=== PATIENT | female | born 1960 | race Hispanic/Latino ===

== ENCOUNTER 2021-05-18 21:09 | Emergency (ER) | payer OTHER ==
[~2021-05-18] VITALS: Ht 149.9 cm; Wt 59.0 kg
[2021-05-18] MEDS ORDERED: 0.9%NACL 1000ML 1,000 ML IV ONE (23:30)
[2021-05-18] MEDS ORDERED: PANTOPRAZOLE 40 MG/VIAL IVP ONE (23:30)
[2021-05-18] MEDS ORDERED: ONDANSETRON 4MG INJ IVP ONE (23:30)
[2021-05-18] MEDS ORDERED: METOCLOPRAMIDE 10 MG/2 ML VIAL IVP ONE (23:30)
[2021-05-18] MEDS ORDERED: FAMOTIDINE 20MG VIAL IV ONE (23:30)
[2021-05-18 23:33] LABS: BASOPHILS % (AUTO) 0.4 % (0.0-5.0); EOSINOPHILS % (AUTO) 0.9 % (0.0-8.0); HEMATOCRIT 38.6 % (36-48); LYMPHOCYTES % (AUTO) 35.5 % (21.0-51.0); MEAN CORPUSCULAR HEMOGLOBIN 27.6 pg (27.0-33.0); MEAN CORPUSCULAR HGB CONC 32.1 g/dL (32.0-36.0); MONOCYTES % (AUTO) 6.6 % (3.0-13.0); PLATELET COUNT (AUTO) 249 K/uL (130-400); RED BLOOD CELL COUNT(AUTO) 4.49 MIL/uL (4.00-5.50); RED CELL DISTRIBUTION WIDTH 13.6 % (11.0-15.5)
[2021-05-18 23:35] LABS: ABG BASE EXCESS 2.7 mmol/L (-2.0-3.0); ABG HCO3 26.9 mmol/L (21.0-28.0); ABG OXYGEN SATURATION 96.4 % (95.0-99.0); ABG PCO2 40 mmHg (32-45)
[2021-05-18 23:39] LABS: CREATININE 0.6 mg/dL (0.5-1.5); POTASSIUM 3.6 mmol/L (3.5-5.1)
[2021-05-18 23:44] LABS: ALBUMIN 3.2 g/dL (3.5-5.0); BILIRUBIN,TOTAL 0.2 mg/dL (0.2-1.0); TOTAL PROTEIN, SERUM 7.1 g/dL (6.0-8.3)
[2021-05-18] MEDS ORDERED: IOHEXOL 350 MG/ML 100ML INFUS..BTL IV ONE (23:57)
[2021-05-19 02:00] VITALS: BP 163/78
[2021-05-19 02:45] LABS: BILIRUBIN,URINE Negative (NEGATIVE); COLOR,URINE Yellow (YELLOW); GLUCOSE, URINE (UA) 500 mg/dL (NEGATIVE); KETONES,URINE Negative (NEGATIVE); LEUKOCYTE ESTERASE ,URINE Negative (NEGATIVE); NITRATE,URINE Negative (NEGATIVE); OCCULT BLOOD,URINE Small (NEGATIVE); PH,URINE 5.5 (5.0-8.0); PROTEIN,URINE POS 2+ mg/dL (NEGATIVE)
[2021-05-19 02:51] LABS: APPEARANCE,URINE CLOUDY (CLEAR)
[2021-05-19 03:08] LABS: BACTERIA,URINE Many /HPF (None Seen); SQUAMOUS EPITHELIAL CELL,UR 0-2 /HPF (0-2)
[2021-05-19] MEDS ORDERED: CEFTRIAXONE 1G VIAL IVP ONE (03:30)
[2021-05-19] MEDS ORDERED: ONDA4TAB10 PO (04:18)
[2021-05-19] MEDS ORDERED: METO-296 PO (04:18)
[2021-05-19] MEDS ORDERED: CEPH500T PO (04:18)
[2021-05-19] MEDS ORDERED: PANT40TA PO (04:19)
== END 2021-05-19 04:33 | disposition home or self-care (01) ==
LOC: EDH 21:09
DX: N39.0 Urinary tract infection, site not specified (principal); E86.9 Volume depletion, unspecified; R11.2 Nausea with vomiting, unspecified; R10.13 Epigastric pain; Z20.822 Contact with and (suspected) exposure to COVID-19; E11.9 Type 2 diabetes mellitus without complications; I10 Essential (primary) hypertension; Z90.49 Acquired absence of other specified parts of digestive tract; Z79.899 Other long term (current) drug therapy
CPT/HCPCS: 36415; 36600; 71045; 74177; 80053; 81001; 82010; 82803; 83605; 83690; 83880; 84484 ×2; 85025; 87077; 87088; 87186; 87635; 87804 ×2; 93005; 96361; 96374; 96375 ×2; 99285; C9113; C9803; J0696; J2405; J2765; J3490; J7030; Q9967

== ENCOUNTER 2022-02-12 16:15 | Emergency (ER) | payer MEDICAID ==
[~2022-02-12 16:15] MED LIST: CEPH500T PO; METO-296 PO; ONDA4TAB10 PO; PANT40TA PO
== END 2022-02-12 18:03 | disposition left against medical advice (07) ==
LOC: EDH 16:15
DX: R05.9 Cough, unspecified (principal); R42 Dizziness and giddiness; Z53.21 Procedure and treatment not carried out due to patient leaving prior to being seen by health care provider

== ENCOUNTER 2022-11-05 10:57 | Emergency (ER) | payer MEDICAID ==
[~2022-11-05] VITALS: Ht 149.9 cm; Wt 68.0 kg
[2022-11-05 11:46] LABS: BASOPHILS # (AUTO) 0.03 K/uL (0.00-0.20); BASOPHILS % (AUTO) 0.4 % (0.0-5.0); EOSINOPHILS # (AUTO) 0.07 K/uL (0.00-0.70); HEMATOCRIT 33.9 % (36-48); IMMATURE GRANULOCYTE ABSOLUTE 0.02 K/uL (0-1); LYMPHOCYTES % (AUTO) 28.9 % (21.0-51.0); MEAN CORPUSCULAR HGB CONC 29.8 g/dL (32.0-36.0); MEAN CORPUSCULAR VOLUME 80.7 fL (79-99); MONOCYTES # (AUTO) 0.5 K/uL (0.1-1.0); MONOCYTES % (AUTO) 7.8 % (3.0-13.0); NEUTROPHILS # (AUTO) 4.2 K/uL (1.8-7.7); NEUTROPHILS % (AUTO) 61.6 % (40.0-77.0); PLATELET COUNT (AUTO) 234 K/uL (130-400); RED CELL DISTRIBUTION WIDTH 15.7 % (11.0-15.5); WHITE BLOOD COUNT (AUTO) 6.8 K/uL (4.8-10.8)
[2022-11-05 11:56] LABS: CREATININE 0.8 mg/dL (0.5-1.5); POTASSIUM 4.1 mmol/L (3.5-5.1)
[2022-11-05 12:13] LABS: ALBUMIN 2.9 g/dL (3.5-5.0); BILIRUBIN,TOTAL 0.2 mg/dL (0.2-1.0); MAGNESIUM 1.5 mg/dL (1.80-2.40); TOTAL PROTEIN, SERUM 6.2 g/dL (6.0-8.3)
[2022-11-05 12:35] LABS: B-TYPE NATRIURETIC PEPTIDE 749 pg/mL (0-100)
[2022-11-05] MEDS ORDERED: FUROSEMIDE 40MG VIAL IV ONE (16:00)
[2022-11-05] MEDS ORDERED: ALBUTEROL 0.083% 2.5 MG/3 ML INH IH ONE (16:00)
[2022-11-05 16:24] VITALS: PULSE 79; RESP 18
[2022-11-05] MEDS ORDERED: FURO-152 PO (18:04)
[2022-11-05 18:07] VITALS: BP 168/79; PULSE 81; RESP 18; O2SAT 97
== END 2022-11-05 18:21 | disposition home or self-care (01) ==
LOC: EDH 10:57
DX: R60.9 Edema, unspecified (principal); I10 Essential (primary) hypertension; E11.9 Type 2 diabetes mellitus without complications; Z90.49 Acquired absence of other specified parts of digestive tract
CPT/HCPCS: 99285; 96374; 71045; 82550; 83735; 83874; 84484; 80053; 83880; 85025; 36415; 93005; 94640; J1940

== ENCOUNTER 2023-07-28 16:44 | Inpatient (IN) | payer MEDICAID ==
[~2023-07-28] VITALS: Ht 149.9 cm; Wt 65.4 kg
[~2023-07-28 16:44] MED LIST changes: +FURO-152 PO; +ONDA-243 PO; -ONDA4TAB10 PO
[2023-07-28 18:11] LABS: BASOPHILS # (AUTO) 0.04 K/uL (0.00-0.20); BASOPHILS % (AUTO) 0.5 % (0.0-5.0); EOSINOPHILS % (AUTO) 1.3 % (0.0-8.0); HEMATOCRIT 34.9 % (36-48); IMMATURE GRANULOCYTE ABSOLUTE 0.06 K/uL (0-1); LYMPHOCYTES # (AUTO) 2.2 K/uL (1.0-4.8); LYMPHOCYTES % (AUTO) 28.1 % (21.0-51.0); MEAN CORPUSCULAR HEMOGLOBIN 28.4 pg (27.0-33.0); MEAN CORPUSCULAR HGB CONC 32.1 g/dL (32.0-36.0); MEAN CORPUSCULAR VOLUME 88.6 fL (79-99); MONOCYTES # (AUTO) 0.5 K/uL (0.1-1.0); MONOCYTES % (AUTO) 6.3 % (3.0-13.0); PLATELET COUNT (AUTO) 221 K/uL (130-400); RED BLOOD CELL COUNT(AUTO) 3.94 MIL/uL (4.00-5.50); RED CELL DISTRIBUTION WIDTH 14.6 % (11.0-15.5); WHITE BLOOD COUNT (AUTO) 7.9 K/uL (4.8-10.8)
[2023-07-28 18:34] LABS: CREATININE 1.2 mg/dL (0.5-1.0); POTASSIUM 4.6 mmol/L (3.5-5.1)
[2023-07-28 18:38] LABS: ALBUMIN 3.1 g/dL (3.5-5.0); BILIRUBIN,TOTAL 0.2 mg/dL (0.2-1.0); TOTAL PROTEIN, SERUM 6.8 g/dL (6.0-8.3)
[2023-07-28] MEDS: FUROSEMIDE 20MG VIAL IV ONE (21:18)
[2023-07-28] MEDS ORDERED: MAG/ALUM/SIMETH 30 ML UDCUP PO PRN (21:30)
[2023-07-28] MEDS ORDERED: DiphenhydrAMINE HCL 50 MG/ML VIAL IV PRN (21:30)
[2023-07-28] MEDS ORDERED: LACTULOSE 20 GM/30 ML UDCUP PO PRN (21:30)
[2023-07-28] MEDS ORDERED: GLUCAGON 1MG KIT 1 MG ML IM PRN (21:30)
[2023-07-28] MEDS ORDERED: ACETAMINOPHEN 325 MG TAB PO PRN ×2 (21:30)
[2023-07-28] MEDS ORDERED: ZOLPIDEM TARTRATE 5 MG TAB PO PRN (21:30)
[2023-07-28] MEDS ORDERED: DEXTROSE 50%-WATER 50 ML DISP.SYRIN IV PRN (21:30)
[2023-07-28] MEDS ORDERED: FAMOTIDINE 20MG VIAL IV PRN (21:30)
[2023-07-28] MEDS ORDERED: GUAIFENESIN-DM 200/20 MG 10 ML PO PRN (21:30)
[2023-07-28] MEDS ORDERED: IBUPROFEN 600 MG TABLET PO PRN (21:30)
[2023-07-28] MEDS ORDERED: NITROGLYCERIN 0.4 MG SL TAB SL PRN (21:30)
[2023-07-29] VITALS (8 sets, daily range): BP systolic 116–161; BP diastolic 54–80; PULSE 70–99; RESP 16–19; O2SAT 97
[2023-07-29] MEDS: HYDROCODONE/ACETAMINOPHEN 5/325 MG TAB PO PRN (00:21)
[2023-07-29 00:29] LABS: INFLUENZA TYPE A Negative For Type A (NEGATIVE); INFLUENZA TYPE B Negative For Type B (NEGATIVE)
[2023-07-29 00:38] LABS: APPEARANCE,URINE CLEAR (CLEAR); BACTERIA,URINE MOD /HPF (None Seen); BILIRUBIN,URINE NEGATIVE (NEGATIVE); COLOR,URINE COLORLESS (YELLOW); GLUCOSE, URINE (UA) NEGATIVE (NEGATIVE); KETONES,URINE NEGATIVE (NEGATIVE); LEUKOCYTE ESTERASE ,URINE NEGATIVE Leu/uL (NEGATIVE); NITRATE,URINE NEGATIVE (NEGATIVE); OCCULT BLOOD,URINE NEGATIVE (NEGATIVE); PH,URINE 5.5 (5.0-8.0); PROTEIN,URINE 70 mg/dL (NEGATIVE); RBC,URINE 0-1 /HPF (0-1); SQUAMOUS EPITHELIAL CELL,UR RARE /HPF (0-2); UROBILINOGEN,URINE 0.2 mg/dL (0.2-1.0)
[2023-07-29] MEDS ORDERED: METF-444 PO (01:21)
[2023-07-29] MEDS ORDERED: MECL-302 PO (01:30)
[2023-07-29] MEDS ORDERED: SERT-438 PO (01:30)
[2023-07-29] MEDS ORDERED: PREG50 PO (01:30)
[2023-07-29] MEDS ORDERED: TRAZ-185 PO (01:30)
[2023-07-29] MEDS ORDERED: ASPI-1197 PO (01:30)
[2023-07-29] MEDS ORDERED: BENZ-226 PO (01:30)
[2023-07-29] MEDS ORDERED: METO-408 PO (01:30)
[2023-07-29] MEDS: HYDRALAZINE 20MG/ML VIAL IV PRN (01:33)
[2023-07-29] MEDS: ONDANSETRON 4MG INJ IV PRN (04:26)
[2023-07-29 04:41] LABS: BASOPHILS # (AUTO) 0.06 K/uL (0.00-0.20); BASOPHILS % (AUTO) 0.6 % (0.0-5.0); EOSINOPHILS # (AUTO) 0.13 K/uL (0.00-0.70); EOSINOPHILS % (AUTO) 1.4 % (0.0-8.0); HEMATOCRIT 33.8 % (36-48); IMMATURE GRANULOCYTE ABSOLUTE 0.04 K/uL (0-1); LYMPHOCYTES # (AUTO) 2.8 K/uL (1.0-4.8); MEAN CORPUSCULAR HEMOGLOBIN 28.5 pg (27.0-33.0); MEAN CORPUSCULAR HGB CONC 32.8 g/dL (32.0-36.0); MEAN CORPUSCULAR VOLUME 86.7 fL (79-99); MONOCYTES # (AUTO) 0.7 K/uL (0.1-1.0); MONOCYTES % (AUTO) 7.2 % (3.0-13.0); NEUTROPHILS # (AUTO) 5.6 K/uL (1.8-7.7); NEUTROPHILS % (AUTO) 60.4 % (40.0-77.0); PLATELET COUNT (AUTO) 221 K/uL (130-400); RED CELL DISTRIBUTION WIDTH 14.6 % (11.0-15.5); WHITE BLOOD COUNT (AUTO) 9.3 K/uL (4.8-10.8)
[2023-07-29 04:58] LABS: HEMOGLOBIN A1C 7.9 % (4.0-6.0)
[2023-07-29 05:05] LABS: BILIRUBIN,DIRECT 0.1 mg/dL (0.0-0.3); BILIRUBIN,TOTAL 0.4 mg/dL (0.2-1.0); CREATININE 1.1 mg/dL (0.5-1.0); POTASSIUM 4.1 mmol/L (3.5-5.1); TOTAL PROTEIN, SERUM 6.5 g/dL (6.0-8.3)
[2023-07-29] MEDS ORDERED: BENZONATATE 100 MG CAPSULE PO PRN (05:30)
[2023-07-29] MEDS ORDERED: MECLIZINE HCL 25 MG TABLET PO SCH (05:30)
[2023-07-29] MEDS ORDERED: TRAZODONE HCL 50 MG TAB PO PRN (05:30)
[2023-07-29] MEDS: INSULIN HUMULIN R 100 UNIT/ML 3ML SQ SCH (05:58)
[2023-07-29] MEDS ORDERED: PHARMACY COMMUNICATION MISC SCH (06:30)
[2023-07-29] MEDS ORDERED: MECLIZINE HCL 25 MG TABLET PO PRN (07:30)
[2023-07-29] MEDS: FAMOTIDINE 20MG VIAL IV SCH (09:03)
[2023-07-29] MEDS: FUROSEMIDE 20MG VIAL IV SCH (09:03)
[2023-07-29] MEDS: PREGABALIN 25 MG CAP PO SCH (09:04)
[2023-07-29] MEDS: SERTRALINE HCL 50 MG TABLET PO SCH (09:04)
[2023-07-29] MEDS: METOPROLOL SUCCINATE 25 MG TAB.SR.24H PO SCH (09:04)
[2023-07-29] MEDS: ASPIRIN 81MG CHEW TAB PO SCH (09:04)
[2023-07-29] MEDS: HEPARIN 5,000 UNIT VIAL SQ SCH (09:12)
[2023-07-29] MEDS ORDERED: POTASSIUM CHLORIDE 20MEQ/100ML 100 ML IV PRN (14:30)
[2023-07-29] MEDS ORDERED: KCL 20 MEQ ERTAB PO PRN (14:30)
[2023-07-29] MEDS ORDERED: POTASSIUM CHLORIDE 10% ELIXIR 20 MEQ/15 ML UDCUP PO PRN (14:30)
[2023-07-30] VITALS (8 sets, daily range): BP systolic 113–176; BP diastolic 60–80; PULSE 76–83; RESP 16–19; O2SAT 96
[2023-07-30 03:41] LABS: BASOPHILS # (AUTO) 0.06 K/uL (0.00-0.20); BASOPHILS % (AUTO) 0.8 % (0.0-5.0); EOSINOPHILS # (AUTO) 0.11 K/uL (0.00-0.70); EOSINOPHILS % (AUTO) 1.4 % (0.0-8.0); HEMATOCRIT 33.9 % (36-48); IMMATURE GRANULOCYTE ABSOLUTE 0.04 K/uL (0-1); LYMPHOCYTES # (AUTO) 2.3 K/uL (1.0-4.8); LYMPHOCYTES % (AUTO) 29.9 % (21.0-51.0); MEAN CORPUSCULAR HEMOGLOBIN 27.5 pg (27.0-33.0); MEAN CORPUSCULAR HGB CONC 32.2 g/dL (32.0-36.0); MEAN CORPUSCULAR VOLUME 85.6 fL (79-99); MONOCYTES # (AUTO) 0.6 K/uL (0.1-1.0); MONOCYTES % (AUTO) 8.4 % (3.0-13.0); NEUTROPHILS # (AUTO) 4.5 K/uL (1.8-7.7); PLATELET COUNT (AUTO) 234 K/uL (130-400); RED BLOOD CELL COUNT(AUTO) 3.96 MIL/uL (4.00-5.50); RED CELL DISTRIBUTION WIDTH 14.4 % (11.0-15.5); WHITE BLOOD COUNT (AUTO) 7.7 K/uL (4.8-10.8)
[2023-07-30 04:13] LABS: ALBUMIN 2.8 g/dL (3.5-5.0); BILIRUBIN,TOTAL 0.3 mg/dL (0.2-1.0); CREATININE 1.4 mg/dL (0.5-1.0); MAGNESIUM 1.7 mg/dL (1.80-2.40); POTASSIUM 4.1 mmol/L (3.5-5.1); TOTAL PROTEIN, SERUM 6.4 g/dL (6.0-8.3)
[2023-07-30] MEDS: MAGNESIUM 2GM PREMIX 50ML 50 ML IV PRN (06:03)
[2023-07-30] MEDS: SPIRONOLACTONE 25 MG TAB PO SCH (16:20)
[2023-07-31 04:04] VITALS: BP 139/74; PULSE 71; RESP 18
[2023-07-31 08:00] VITALS: O2SAT 99
[2023-07-31 08:46] VITALS: BP 121/72; PULSE 69; RESP 18
[2023-07-31] MEDS: FUROSEMIDE 20 MG TABLET PO SCH (09:43)
[2023-07-31 11:29] VITALS: BP 142/52; PULSE 69; RESP 18
[2023-07-31] MEDS ORDERED: SPIR25TA6 PO (15:18)
[2023-07-31 16:21] VITALS: BP 156/60; PULSE 69; RESP 16
== END 2023-07-31 18:05 | disposition home or self-care (01) | DRG 194 ==
LOC: EDH 16:44 → EDHIP 16:45 → 4CH 07-29 00:05
PROVIDERS: ADMIT Hospitalist; ATTEND Hospitalist
DX: I11.0 Hypertensive heart disease with heart failure (principal); N17.9 Acute kidney failure, unspecified; E11.51 Type 2 diabetes mellitus with diabetic peripheral angiopathy without gangrene; E11.42 Type 2 diabetes mellitus with diabetic polyneuropathy; I50.33 Acute on chronic diastolic (congestive) heart failure; E11.40 Type 2 diabetes mellitus with diabetic neuropathy, unspecified; Z20.822 Contact with and (suspected) exposure to COVID-19; E11.65 Type 2 diabetes mellitus with hyperglycemia; E78.00 Pure hypercholesterolemia, unspecified; E78.5 Hyperlipidemia, unspecified; I25.10 Atherosclerotic heart disease of native coronary artery without angina pectoris; Z90.49 Acquired absence of other specified parts of digestive tract; Z95.1 Presence of aortocoronary bypass graft; Z79.82 Long term (current) use of aspirin; Z79.84 Long term (current) use of oral hypoglycemic drugs; Z79.899 Other long term (current) drug therapy; Z82.49 Family history of ischemic heart disease and other diseases of the circulatory system; Z83.3 Family history of diabetes mellitus
CPT/HCPCS: 36415; 71045; 78582; 80048; 80053; 80076; 81001; 82140; 82550; 82948; 83036; 83605; 83735; 83880; 84145; 84484; 85025; 87426; 87804; 93005; 93306; 93356; 93970; A9540; A9558; G0378; J0360; J1644; J1815; J1940; J2405; J3475; J3490